=== PATIENT | female | born 2000 | race Caucasian/White ===

== ENCOUNTER 2021-04-01 15:28 | Emergency (ER) | payer BC ==
[2021-04-01] MEDS ORDERED: Sodium Chloride 0.9% 10 ML Syringe FLUSH PRN (16:10)
[2021-04-01] MEDS ORDERED: Triamcinolone Acetonide 0.1% Crm 15 GM Tube TOP ONE (16:36)
--- NOTE | 2021-04-01 17:11 | EDM.PDOC ---
ED HPI GENERAL MEDICAL PROBLEM - General Chief Complaint: Lower Extremity Injury/Pain Stated Complaint: POSS KNEE INFECTION POST OP Time Seen by Provider: 04/01/21 15:37 Source of Information: Reports: Patient History Limitations: Reports: No Limitations - History of Present Illness INITIAL COMMENTS - FREE TEXT/NARRATIVE: 20-year-old female presents the emergency department with concerns that she may have an infection to her right knee. Patient had right knee arthroscopy with chondroplasty lateral femoral condyle, partial synovectomy, open osteochondral autograft transplant lateral femoral condyle, anterior lateral ligament allograft reconstruction bone marrow aspiration from right anterior iliac crest on , March 29, 2021 which was 3 days ago. Patient states that she has had chills which started last evening. She states she had nausea and vomiting that started yesterday. She states she has been drinking plenty of fluids but has not had much in the way of appetite. States her pain is well controlled. She also reports that she had a fainting episode yesterday. She removed her dressings today as directed and states that there was a lot of "pussy bloody" drainage noted. She states her roommate helped her clean up the knee and they replaced it with bandages as she states she was directed to do. She states she is concerned because she noted increased redness/rash to the entire dorsal aspect of the knee around the surgical area. She states she is otherwise healthy and does not have any medical issues. RIGHT KNEE Pain Score (Numeric/FACES): 4 - Related Data Allergies Allergy/AdvReac Type Severity Reaction Status Date / Time No Known Allergies Allergy Verified 04/01/21 15:36 Home Meds: Home Meds Aspirin [Halfprin] 81 mg PO DAILY 04/01/21 [History] Past Medical History [employer] History: Reports: Ectopic - Past Surgical History HEENT Surgical History: Reports: Tonsillectomy Other Musculoskeletal Surgeries/Procedures:: Patient had ACL surgery on right knee in 2012, patient reinjured it and had a right knee arthroscopy with chondroplasty lateral femoral condyl, partial synovectomy, open osteochondral autograft transplant lateral femoral condyle, anterolateral ligament allograft reconstruction bone marrow aspiration from right anterior iliac crest on march Review of Systems - Review of Systems Review Of Systems: Comprehensive ROS is negative, except as noted in HPI. ED EXAM, GENERAL - Physical Exam Exam: See Below Exam Limited By: No Limitations General Appearance: Alert, WD/WN, No Apparent Distress Ears: Normal External Exam, Hearing Grossly Normal Nose: Normal Inspection Throat/Mouth: Normal Inspection, Normal Lips, Normal Voice, No Airway Compromise Head: Atraumatic Neck: Normal Inspection, Supple Respiratory/Chest: No Respiratory Distress, No Accessory Muscle Use Cardiovascular: Normal Peripheral Pulses, Regular Rate, Rhythm. No: No Edema (Right knee due to surgery) Peripheral Pulses: 2+: Radial (L), Radial (R), Dorsalis Pedis (L), Dorsalis Pedis (R) GI/Abdominal: No Distention (Female) Exam: Deferred Rectal (Female) Exam: Deferred Back Exam: Normal Inspection Extremities: Joint Swelling (Due to surgery), Limited Range of Motion (Due to surgery. Patient is to wear an immobilizer brace.), Increased Warmth (Right knee slightly warmer than left), Redness (Extending 4 to 6 cm around surgical incision with a sandpaperlike rash appreciated.). No: Normal Inspection Neurological: Alert, Oriented, Normal Cognition Psychiatric: Normal Affect, Normal Mood Skin Exam: Warm, Dry, Intact, Normal Color, Rash (Noted around surgical incision to right patella; sandpaper and feline appearance.) Lymphatic: No Adenopathy Course - Vital Signs Text/Narrative:: As stated above, patient presents with increased redness, warmth and swelling as well as purulent drainage to his surgical incision. Patient had knee surgery 3 days ago. Physical exam is essentially unremarkable other than patient's right knee is swollen and slightly warm to touch. I do not appreciate any purulent drainage coming from the bandages. Patient does have what appears to be a localized reaction which would could be from the ChloraPrep or Betadine solution used to prep her for surgery. However due to the fact that the patient has had chills, nausea and vomiting and a single episode, will obtain culture of the wound as well as lab studies. Last Recorded V/S: Last Vital Signs Temp 97.6 F 04/01/21 15:39 Pulse 117 H 04/01/21 15:39 Resp 20 04/01/21 15:39 BP 133/97 H 04/01/21 15:39 Pulse Ox 99 04/01/21 15:39 - Orders/Labs/Meds Orders: Active Orders 24 hr Category Date Time Status CULTURE, ANAEROBE & AEROBE [MREF] Stat Lab 04/01/21 16:24 Received Sodium Chloride 0.9% [Saline Flush] Med 04/01/21 16:10 Active 10 ml FLUSH ASDIRECTED PRN Saline Lock Insert [OM.PC] Stat Oth 04/01/21 16:10 Ordered Medication Orders Sodium Chloride (Sodium Chloride 0.9% 10 Ml Syringe) 10 ml FLUSH ASDIRECTED PRN PRN Reason: Keep Vein Open Labs: Laboratory Tests 04/01/21 04/01/21 04/01/21 Range/Units 16:24 16:24 16:24 WBC 8.37 (3.98-10.04) K/mm3 RBC 4.39 (3.98-5.22) M/mm3 Hgb 11.9 (11.2-15.7) gm/dl Hct 37.6 (34.1-44.9) % MCV 85.6 (79.4-94.8) fl MCH 27.1 (25.6-32.2) pg MCHC 31.6 L (32.2-35.5) g/dl RDW Std Deviation 43.5 (36.4-46.3) fL Plt Count 362 (182-369) K/mm3 MPV 10.3 (9.4-12.3) fl Neut % (Auto) 66.7 (34.0-71.1) % Lymph % (Auto) 21.4 (19.3-51.7) % Vigo % (Auto) 8.0 (4.7-12.5) % Eos % (Auto) 3.5 (0.7-5.8) Baso % (Auto) 0.2 (0.1-1.2) % Neut # (Auto) 5.58 (1.56-6.13) K/mm3 Lymph # (Auto) 1.79 (1.18-3.74) K/mm3 Vigo # (Auto) 0.67 H (0.24-0.36) K/mm3 Eos # (Auto) 0.29 (0.04-0.36) K/mm3 Baso # (Auto) 0.02 (0.01-0.08) K/mm3 Sodium 138 (136-145) mEq/L Potassium 3.8 (3.5-5.1) mEq/L Chloride 101 (98-107) mEq/L Carbon Dioxide 29 (21-32) mEq/L Anion Gap 11.8 (5-15) BUN 10 (7-18) mg/dL Creatinine 0.9 (0.55-1.02) mg/dL Est Cr Clr Drug Dosing TNP Estimated GFR (MDRD) > 60 (>60) mL/min BUN/Creatinine Ratio 11.1 L (14-18) Glucose 94 (70-99) mg/dL Lactic Acid 0.7 (0.4-2.0) mmol/L Calcium 9.1 (8.5-10.1) mg/dL Magnesium 2.0 (1.8-2.4) mg/dL Total Bilirubin 0.6 (0.2-1.0) mg/dL AST 16 (15-37) U/L ALT 26 (14-59) U/L Alkaline Phosphatase 80 (46-116) U/L C-Reactive Protein 4.1 H* (<1.0) mg/dL Total Protein 7.4 (6.4-8.2) g/dl Albumin 3.4 (3.4-5.0) g/dl Globulin 4.0 gm/dL Albumin/Globulin Ratio 0.9 L (1-2) Meds: Medications Generic Name Dose Route Start Last Admin Trade Name Freq PRN Reason Stop Dose Admin Sodium Chloride 10 ml 04/01/21 16:10 Sodium Chloride 0.9% 10 Ml Syringe FLUSH ASDIRECTED PRN Keep Vein Open Discontinued Medications Generic Name Dose Route Start Last Admin Trade Name Freq PRN Reason Stop Dose Admin Triamcinolone Acetonide 15 gm 04/01/21 16:36 Triamcinolone Acetonide 0.1% Crm 15 Gm Tube TOP 04/01/21 16:37 ONETIME ONE - Re-Assessments/Exams Free Text/Narrative Re-Assessment/Exam: 04/01/21 17:13 Hematology is unremarkable, white blood cell count 8.37 Chemistry is unremarkable, C-reactive protein 4.1 this could very likely be due to surgical procedure. I did have Dr. Pichardo also evaluate the patient's surgical incision area. He suspects as well as I do that the increased erythema and sandpaper rash is due to localized reaction to skin prep prior to surgery. He recommends I order triamcinolone cream for the patient. This will likely decrease the redness and itching associated. Patient will be discharged to home with recommendations that she return to the emergency department should her condition worsen or change. Departure - Departure Time of Disposition: 17:20 Disposition: Home, Self-Care 01 Condition: Good Clinical Impression: Contact dermatitis Qualifiers: Contact dermatitis type: unspecified Contact dermatitis trigger: unspecified trigger Qualified Code(s): L25.9 - Unspecified contact dermatitis, unspecified cause - Discharge Information Instructions: Contact Dermatitis Referrals: PCP,Not In Area [Primary Care Provider] - Forms: ED Department Discharge Additional Instructions: You were seen in the emergency department today with concerns regarding infection in your right knee. Wound cultures were taken and lab studies were completed. Your labs are all essentially unremarkable and it does not appear that you have any sign of infection. Should any bacteria grow out of your wound cultures we will call you otherwise if you do not hear from us there is no further treatment warranted. Recommend that you drink plenty of fluids and eat small frequent meals. Cause of your fainting spells is likely due to taking the pain medications which lowers her blood pressure and then not eating or drinking which lowers that even more. Should your condition worsen or change, do not hesitate return to the emergency department otherwise follow-up with your orthopedic surgeon. Sepsis Event Note (ED) - Evaluation Sepsis Screening Result: No Definite Risk - Focused Exam Vital Signs: Vital Signs Temp Pulse Resp BP Pulse Ox 04/01/21 15:39 97.6 F 117 H 20 133/97 H 99 - My Orders Last 24 Hours: My Active Orders 04/01/21 16:10 Sodium Chloride 0.9% [Saline Flush] 10 ml FLUSH ASDIRECTED PRN Saline Lock Insert [OM.PC] Stat 04/01/21 16:24 CULTURE, ANAEROBE & AEROBE [MREF] Stat - Assessment/Plan Last 24 Hours: My Active Orders 04/01/21 16:10 Sodium Chloride 0.9% [Saline Flush] 10 ml FLUSH ASDIRECTED PRN Saline Lock Insert [OM.PC] Stat 04/01/21 16:24 CULTURE, ANAEROBE & AEROBE [MREF] Stat
== END 2021-04-01 17:45 | disposition home or self-care (01) ==
LOC: JD.ED 15:28
DX: L25.9 Unspecified contact dermatitis, unspecified cause (principal)
CPT/HCPCS: 36415; 80053; 83605; 83735; 85025; 86140; 87070; 87205; 99283; A9270; 87075; 99284

== ENCOUNTER 2024-01-17 14:04 | Emergency (ER) | payer BC ==
[2024-01-17 14:54] LABS: BASOPHILS PERCENT AUTO 0.4 % (0.0-1.0); EOSINOPHILS ABSOLUTE AUTO 0.1 K/mm3 (0.0-0.4); EOSINOPHILS PERCENT AUTO 0.7 % (0.0-6.0); HEMATOCRIT 36.1 % (37.0-47.0); HEMOGLOBIN 12.2 gm/dl (12.0-16.0); IMMATURE GRAN ABSOLUTE AUTO 0.03 K/mm3 (0.00-0.05); IMMATURE GRAN PERCENT AUTO 0.3 % (0.0-0.4); LYMPHOCYTES ABSOLUTE AUTO 1.6 K/mm3 (1.0-4.8); LYMPHOCYTES PERCENT AUTO 15.7 % (24.0-44.0); MEAN CORPUSCULAR HEMOGLOBIN 29.4 pg (28.0-32.0); MEAN CORPUSCULAR HGB CONC 33.8 g/dl (32.0-36.0); MEAN PLATELET VOLUME 9.9 fl (9.4-12.3); MONOCYTES ABSOLUTE AUTO 0.7 K/mm3 (0.0-0.8); MONOCYTES PERCENT AUTO 6.7 % (0.0-8.0); NEUTROPHILS ABSOLUTE AUTO 7.6 K/mm3 (1.8-7.7); NEUTROPHILS PERCENT AUTO 76.2 % (41.0-71.0); PLATELET COUNT,PLT 251 K/mm3 (150-400); RED BLOOD CELL COUNT 4.15 M/mm3 (4.10-5.30)
[2024-01-17] MEDS: Sodium Chloride 0.9% 1,000 ML IV ONE (15:06)
[2024-01-17] MEDS: Ondansetron 4 MG/2 ML SDV IVPUSH ONE (15:06)
[2024-01-17] MEDS: Sodium Chloride 0.9% 10 ML Syringe FLUSH PRN (15:07)
[2024-01-17] MEDS: HYDROmorphone 0.5 MG/0.5 ML Syringe IVPUSH ONE (15:07)
[2024-01-17 15:15] LABS: A/G RATIO 1.3 (1-2); ANION GAP 9.4 (5-15); BUN/CREATININE RATIO 6.7 (14-18); C-REACTIVE PROTEIN 0.05 mg/dL (<0.30); CALCIUM 8.8 mg/dL (8.5-10.1); CREATININE 0.9 mg/dL (0.55-1.02); EST CRCL DRUG DOSING (CG) 111.23 mL/min; POTASSIUM,K 3.4 mEq/L (3.5-5.1); PROTEIN TOTAL,TP 7.1 g/dl (6.4-8.2)
[2024-01-17] MEDS: Iopamidol 612 MG/ML 100 ML Bottle IVPUSH ONE (16:22)
[2024-01-17 16:47] LABS: APPEARANCE,URINE CLEAR (Clear); BILIRUBIN,URINE NEGATIVE (Negative); COLOR,URINE YELLOW (Yellow); GLUCOSE,URINE NEGATIVE (Negative); KETONES,URINE NEGATIVE (Negative); LEUKOCYTE ESTERASE,URINE NEGATIVE (Negative); NITRITE,URINE NEGATIVE (Negative); OCCULT BLOOD,URINE 2+ (Negative); PROTEIN,URINE NEGATIVE (Negative); UROBILINOGEN,URINE 0.2 (0.2-1.0)
[2024-01-17 17:27] LABS: BACTERIA,URINE RARE /hpf (FEW); MUCUS,URINE NOT SEEN /hpf (FEW); RBC,URINE 0-5 /hpf (0-5); SQUAMOUS EPITHELIAL CELLS,UR 0-5 /hpf (0-5); WBC,URINE 0-5 /hpf (0-5)
[2024-01-17] MEDS: Ketorolac 30 MG/ML SDV IVPUSH ONE (17:45)
== END 2024-01-17 17:53 | disposition home or self-care (01) ==
LOC: JD.ED 14:04
DX: I88.0 Nonspecific mesenteric lymphadenitis (principal); Z87.891 Personal history of nicotine dependence; Z79.899 Other long term (current) drug therapy; Z91.048 Other nonmedicinal substance allergy status
CPT/HCPCS: 36415; 74177; 80053; 81001; 84703; 85025; 86140; 96361; 96374; 96375; 99284; J1170; J1885; J2405; J3490; J7030; Q9967